=== PATIENT | female | born 1995 | race Caucasian/White ===

== ENCOUNTER 2022-04-17 10:31 | Day surgery (SDC) | payer BC ==
[2022-04-17 11:09] VITALS: BMI 26.2
[2022-04-17] MEDS ORDERED: hydrALAZINE 20 MG/ML VIAL SLOW IVP PRN (11:40)
[2022-04-17 12:23] LABS: Fetal Membranes Rupture No Membranes Rupture (No Rupture)
== END 2022-04-17 12:40 | disposition home or self-care (01) ==
LOC: CSHLD/OP 10:31
PROVIDERS: ATTEND Obstetrics & Gynecology
DX: O36.8130 Decreased fetal movements, third trimester, not applicable or unspecified (principal); Z3A.35 35 weeks gestation of pregnancy
CPT/HCPCS: 76819; 84112; 99283

== ENCOUNTER 2022-05-19 03:44 | Inpatient (IN) | payer BC ==
[2022-05-19] MEDS ORDERED: hydrALAZINE 20 MG/ML VIAL SLOW IVP PRN ×3 (05:07→15:37)
[2022-05-19 05:18] VITALS: BMI 27.6
[2022-05-19] MEDS ORDERED: HYDROcodone/Acetaminophen 5/325 mg Tablet PO PRN ×4 (06:37→15:37)
[2022-05-19] MEDS ORDERED: Promethazine HCl 25 MG/ML VIAL IM PRN (06:37)
[2022-05-19] MEDS ORDERED: Butorphanol Tartrate 1 MG/ML VIAL SLOW IVP PRN (06:37)
[2022-05-19] MEDS ORDERED: Carboprost 250 MCG/ML AMP IM PRN (06:37)
[2022-05-19] MEDS ORDERED: Methylergonovine 0.2 MG/ML VIAL IM PRN (06:37)
[2022-05-19] MEDS ORDERED: Ondansetron PF 4 MG/2 ML Vial IVP PRN ×2 (06:37→15:37)
[2022-05-19] MEDS ORDERED: Ibuprofen 800 MG TAB PO PRN (06:37)
[2022-05-19] MEDS ORDERED: Acetaminophen 500 MG TAB PO PRN (06:37)
[2022-05-19] MEDS ORDERED: Lidocaine 1% (PF) 30 ML VIAL SC PRN (06:37)
[2022-05-19] MEDS ORDERED: NS w/ Oxytocin 30 units 500 ML IV SCH ×3 (06:45→15:37)
[2022-05-19] MEDS ORDERED: Lactated Ringer's 1,000 ML IV SCH ×2 (06:45)
[2022-05-19 07:57] LABS: Hemoglobin 12.4 g/dL (12.0-15.5); Mean Corpuscular HGB CONC 32.4 g/dL (32.0-36.0); Mean Corpuscular Hemoglobin 28.8 pg (27.0-33.0); Mean Corpuscular Volume 88.9 fl (81.6-98.3); Mean Platelet Volume 10.7 fl (7.4-10.4); Platelet Count 206 10x3/uL (150-450); RBC Distribution Width 13.3 % (11.5-14.5); Red Blood Cell (RBC) Count 4.31 10x6/uL (3.90-5.03); White Blood Cell (WBC) Count 13.9 10x3/uL (3.5-10.5)
[2022-05-19 08:35] LABS: Syphilis Antibody Nonreactive (Nonreactive); Syphilis Antibody Index 0.07 S/CO (<1.00 Non-Reactive)
[2022-05-19 08:37] LABS: HBSAg Index 0.19 S/CO (0-0.99)
[2022-05-19 08:40] LABS: Hep B Surf Ag NonReactive S/CO (NonReactive)
[2022-05-19 11:05] LABS: SARS-CoV-2 NAA Rapid Test Not Detected (NotDetected)
[2022-05-19] MEDS ORDERED: Fentanyl 2 mcg/Bup 0.1% Cadd 100 ML ONE (13:01)
[2022-05-19] MEDS ORDERED: Lanolin Ointment 7 GM TUBE TOP PRN (15:37)
[2022-05-19] MEDS ORDERED: Benzocaine-Menthol 82.5 ML CAN TOP PRN (15:37)
[2022-05-19] MEDS ORDERED: Preparation H Ointment 28 GM TUBE PR PRN (15:37)
[2022-05-19] MEDS ORDERED: Milk Of Magnesia 30 ML UDCUP PO PRN (15:37)
[2022-05-19] MEDS ORDERED: diphenhydrAMINE 25 MG CAP PO PRN (15:37)
[2022-05-19] MEDS ORDERED: Bisacodyl 10 MG SUPP PR PRN (15:37)
[2022-05-19] MEDS ORDERED: Boostrix 0.5 ML (Tdap) VIAL (>/=7 yrs of age) IM ONE (15:37)
[2022-05-19] MEDS ORDERED: Ibuprofen 800 MG TAB PO SCH ×2 (16:45→22:00)
[2022-05-19] MEDS: Ferrous Sulfate 325 MG TAB PO SCH ×2 (17:06→19:42)
[2022-05-19] MEDS: Docusate 100 MG CAP PO SCH (19:42)
[2022-05-20] MEDS: Ibuprofen 800 MG TAB PO SCH ×3 (00:25→16:45)
[2022-05-20] MEDS: Docusate 100 MG CAP PO SCH (08:28)
[2022-05-20] MEDS ORDERED: Prenatal Vitamin 1 TAB PO SCH (09:00)
[2022-05-20] MEDS ORDERED: Witch Hazel-Glycerin 1 EACH JAR TOP PRN (11:32)
[2022-05-20 16:31] VITALS: BP 118/70; TEMP 98.5
[2022-05-20] MEDS: Ferrous Sulfate 325 MG TAB PO SCH (16:46)
== END 2022-05-20 17:00 | disposition home or self-care (01) | DRG 806 ==
LOC: CSHLD/OP 03:44 → CSHLD 09:16 → CSHPP 16:20
PROVIDERS: ADMIT Obstetrics & Gynecology; ATTEND Obstetrics & Gynecology
PROC: 10E0XZZ Delivery of Products of Conception, External Approach (ICD-10-PCS; principal; 2022-05-19)
PROC: 3E0334Z Introduction of Serum, Toxoid and Vaccine into Peripheral Vein, Percutaneous Approach (ICD-10-PCS; 2022-05-19)
PROC: 0UQGXZZ Repair Vagina, External Approach (ICD-10-PCS; 2022-05-19)
DX: O34.211 Maternal care for low transverse scar from previous cesarean delivery (principal); O71.4 Obstetric high vaginal laceration alone; Z37.0 Single live birth; O26.893 Other specified pregnancy related conditions, third trimester; Z67.41 Type O blood, Rh negative; Z3A.39 39 weeks gestation of pregnancy; Z20.822 Contact with and (suspected) exposure to COVID-19
CPT/HCPCS: 36415; 85027; 85461; 86780; 86850; 86900; 86901; 87340; 90384; 96372; 99285; J2405; J2590; J7120; U0002

== ENCOUNTER 2023-09-26 03:36 | Inpatient (IN) | payer OTHER ==
[2023-09-26 04:10] VITALS: BMI 26.8
[2023-09-26] MEDS ORDERED: fentaNYL 50 mcg/mL 1 mL Vial SLOW IVP PRN (04:34)
[2023-09-26] MEDS ORDERED: Lidocaine 1% (PF) 30 ML VIAL SC PRN (04:45)
[2023-09-26] MEDS ORDERED: Oxytocin 30 units/NS 500 ML 500 ML IVPB SCH (04:45)
[2023-09-26] MEDS ORDERED: Ondansetron PF 4 MG/2 ML Vial IVP PRN ×2 (04:45→09:13)
[2023-09-26] MEDS ORDERED: Promethazine HCl 25 MG/ML VIAL IM PRN (04:45)
[2023-09-26] MEDS ORDERED: Acetaminophen 500 MG TAB PO PRN (04:45)
[2023-09-26] MEDS ORDERED: Oxytocin 30 units/NS 500 ML 500 ML IV SCH ×2 (04:45→09:13)
[2023-09-26] MEDS ORDERED: hydrALAZINE 20 MG/ML VIAL SLOW IVP PRN ×2 (04:45→09:13)
[2023-09-26 04:53] LABS: Hematocrit 31.7 % (34.9-44.5); Hemoglobin 10.9 g/dL (12.0-15.5); Mean Corpuscular HGB CONC 34.4 g/dL (32.0-36.0); Mean Corpuscular Hemoglobin 30.8 pg (27.0-33.0); Mean Corpuscular Volume 89.5 fL (81.6-98.3); Platelet Count 145 10x3/uL (150-450); RBC Distribution Width 13.3 % (11.5-14.5); Red Blood Cell (RBC) Count 3.54 10x6/uL (3.90-5.03); White Blood Cell (WBC) Count 10.7 10x3/uL (3.5-10.5)
[2023-09-26 05:25] LABS: Syphilis Antibody Nonreactive (Nonreactive); Syphilis Antibody Index 0.07 S/CO (<1.00 Non-Reactive)
[2023-09-26 06:01] LABS: HBsAg Index 0.21 S/CO (0-0.99); Hep B Surf Ag - L&D Non-Reactive S/CO (NonReactive)
[2023-09-26] MEDS ORDERED: Boostrix 0.5 ML (Tdap) VIAL (>/=7 yrs of age) IM ONE (09:13)
[2023-09-26] MEDS ORDERED: Milk Of Magnesia 30 ML UDCUP PO PRN (09:13)
[2023-09-26] MEDS ORDERED: HYDROcodone/Acetaminophen 5/325 mg Tablet PO PRN ×2 (09:13)
[2023-09-26] MEDS ORDERED: Bisacodyl 10 MG SUPP PR PRN (09:13)
[2023-09-26] MEDS ORDERED: diphenhydrAMINE 25 MG CAP PO PRN (09:13)
[2023-09-26] MEDS ORDERED: Preparation H Ointment 28 GM TUBE PR PRN (09:13)
[2023-09-26] MEDS ORDERED: Lanolin Ointment 7 GM TUBE TOP PRN (09:13)
[2023-09-26] MEDS: Prenatal Vitamin 1 TAB PO SCH (11:02)
[2023-09-26] MEDS: Docusate 100 MG CAP PO SCH ×2 (11:02→21:34)
[2023-09-26] MEDS: Benzocaine-Menthol 82.5 ML CAN TOP PRN (11:02)
[2023-09-26] MEDS: Ferrous Sulfate 325 MG TAB PO SCH ×2 (11:03→15:41)
[2023-09-26] MEDS: Ibuprofen 800 MG TAB PO SCH (13:12)
[2023-09-27 07:44] VITALS: BP 105/72; TEMP 98
[2023-09-27] MEDS: Prenatal Vitamin 1 TAB PO SCH (09:11)
== END 2023-09-27 11:45 | disposition home or self-care (01) | DRG 807 ==
LOC: CSHLD/OP 03:36 → CSHLD 04:27 → CSHPP 10:24
PROVIDERS: ADMIT Obstetrics & Gynecology; ATTEND Obstetrics & Gynecology
PROC: 10E0XZZ Delivery of Products of Conception, External Approach (ICD-10-PCS; principal; 2023-09-26)
PROC: 0KQM0ZZ Repair Perineum Muscle, Open Approach (ICD-10-PCS; 2023-09-26)
DX: O34.211 Maternal care for low transverse scar from previous cesarean delivery (principal); Z37.0 Single live birth; Z3A.39 39 weeks gestation of pregnancy; O70.0 First degree perineal laceration during delivery
CPT/HCPCS: 36415; 85027; 85461; 86780; 86850; 86870; 86900; 86901; 87340; 90384; 96372; 99285